=== PATIENT | male | born 1965 | race Caucasian/White ===

== ENCOUNTER 2016-10-16 19:20 | Emergency (ER) | payer OTHER ==
[2016-10-16] MEDS ORDERED: Ketorolac INJ* 60 MG/2 ML VIAL IM ONE (20:31)
[2016-10-16] MEDS ORDERED: HYDROcodone/ACETAMIN 5-325 MG* 1 TAB PO ONE (20:58)
[2016-10-16 21:11] VITALS: BP 145/95
--- NOTE | 2016-10-16 21:13 | UC ---
I, Raul,Floresita, scribed for Kandice Perez MD on 10/16/16 at 2054 . Complaint Male HPI - HPI Summary HPI Summary: This 51 y/o male presents to [facility] for acute left flank pain since 1830 PM this evening. Pt reports 6/10 pain at time of triage, but pain worsens while in Urgent Care room and was given Toradol. Negative hematuria or dysuria. PMHx does include recurrent kidney stones with last bout of nonobstructive kidney stone in December 2015. Pt reports that this is "my fourth time in last 20 years". FHx is positive for kidney stones to mother and leukemia to father at age of 71. 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 Primary care involves Dr. Saucedo. Plan of care involving further CT imaging is discussed with pt, but pt is refusing any further imaging stating that "it usually passed in a couple of hours before'. R/b/a is discussed. Outpatient f/u is discussed to r/o obstructive stones, and pt is agreeable to this plan. I-stop reviewed. - History of Current Complaint Chief Complaint: UCBackPain Stated Complaint: KIDNEY-AREA PAIN Time Seen by Provider: 10/16/16 19:32 Hx Obtained From: Patient, Medical Records Onset/Duration: Lasting Hours, Still Present Timing: Constant Pain Intensity: 6 Pain Scale Used: 0-10 Numeric Location: Flank - left Character: Sharp Aggravating Factor(s): Nothing Alleviating Factor(s): Nothing Associated Signs And Symptoms: Negative: Hematuria - Allergies/Home Medications Allergies/Adverse Reactions: Allergies Allergy/AdvReac Type Severity Reaction Status Date / Time No Known Allergies Allergy Verified 10/16/16 19:27 PMH/Surg Hx/FS Hx/Imm Hx - Surgical History Surgical History: Yes Surgery Procedure, Year, and Place: vasectomy - Family History Known Family History: Positive: Renal Disease - Positive kidney stones to mother , Other - Positive leukemia to father - Social History Alcohol Use: Rare Substance Use Type: None Smoking Status (MU): Never Smoked Tobacco Review of Systems Constitutional: Negative Skin: Negative Eyes: Negative ENT: Negative Respiratory: Negative Cardiovascular: Negative Gastrointestinal: Other - left flank pain, without nausea, vomiting, or change in bowels. Genitourinary: Other - no gross or microhematuria, no decrease in voiding, Motor: Negative Neurovascular: Negative Musculoskeletal: Negative Neurological: Negative Psychological: Negative All Other Systems Reviewed And Are Negative: Yes Physical Exam Triage Information Reviewed: Yes Appearance: Pain Distress - moderate to severe, improved significantly with toradol, Obese Vital Signs: Initial Vital Signs Temp 98 F 10/16/16 19:24 Pulse 64 10/16/16 19:24 Resp 16 10/16/16 19:24 BP 156/90 10/16/16 19:24 Pulse Ox 99 10/16/16 19:24 Vital Signs Reviewed: Yes ENT: Positive: Normal ENT inspection Respiratory: Positive: Lungs clear, Normal breath sounds Cardiovascular: Positive: RRR, No Murmur Abdomen Description: Positive: Nontender, No Organomegaly, Soft, CVA Tenderness (L) - mild. Negative: CVA Tenderness (R) Bowel Sounds: Positive: Present Musculoskeletal Exam: Normal Neurological Exam: Normal Psychological Exam: Normal Skin Exam: Normal Diagnostics - Laboratory Diagnostic Studies Completed/Ordered: UA is normal, no blood Complaint Male Course/Dx - Course Course Of Treatment: ketoralac relieved pain quickly. given likely recurrent renal stone, will discharge with analgesics. Follow up tomorrow with either urology or Dr. Saucedo for imaging. [facility] site checked--search # [id number] - Differential Dx/Diagnosis Provider Diagnoses: renal lithiasis Discharge - Discharge Plan Condition: Stable Disposition: HOME Prescriptions: HYDROcodone/ACETAMIN 5-325 MG* [[place] 5-325 TAB*] 2 tab PO Q6H PRN #10 tab MDD 8 PRN Reason: Pain Tamsulosin CAP* [Flomax CAP*] 0.4 mg PO DAILY #30 cap Referrals: Jeff Saucedo MD [Primary Care Provider] - Wan Harrington MD [Medical Doctor] - Additional Instructions: The toradol will give pain control for another 6 hours. You have hydrocodone to use overnight, and an additional prescription was sent to the pharmacy. You have flomax to use daily to promote stone passage. Please strain your urine. Follow up tomorrow with Dr. Saucedo or with urology to arrange imaging of your kidney to ensure that you are not having a blockage to the flow or urine from the kidney. The documentation as recorded by the Raul hussein Soohyun accurately reflects the service I personally performed and the decisions made by me, Kandice Perez MD.
== END 2016-10-16 21:29 | disposition home or self-care (01) ==
LOC: UCEAST 19:20
DX: N20.0 Calculus of kidney (principal); Z87.442 Personal history of urinary calculi; E66.9 Obesity, unspecified
CPT/HCPCS: 81003; 96372; 99212; G0463; J1885

== ENCOUNTER 2018-11-19 09:59 | Emergency (ER) | payer OTHER ==
[2018-11-19 10:10] VITALS: BP 143/91
--- NOTE | 2018-11-19 10:17 | UC ---
Respiratory Complaint HPI - HPI Summary HPI Summary: 53-year-old male with a history of asthma who has had cold symptoms with head congestion and now lung congestion over the past week. He states he does have an albuterol inhaler which she has been using occasionally but not regularly. He denies any fever. - History of Current Complaint Chief Complaint: UCRespiratory Stated Complaint: HEAD/CHEST CONGESTION Time Seen by Provider: 11/19/18 10:16 Hx Obtained From: Patient Onset/Duration: Gradual Onset Timing: Constant Severity Initially: Mild Severity Currently: Moderate Pain Intensity: 0 Character: Cough: Productive - Productive cough of yellow sputum. Aggravating Factors: Nothing Alleviating Factors: Nothing - Patient has used his albuterol inhaler but only occasionally and not regularly over the past few days. Associated Signs And Symptoms: Positive: URI, Nasal Congestion, Sinus Discomfort - Allergies/Home Medications Allergies/Adverse Reactions: Allergies Allergy/AdvReac Type Severity Reaction Status Date / Time No Known Allergies Allergy Verified 11/19/18 10:07 Home Medications: Home Medications Dextromethorphan HBr [Tussin Cough] 1 tab PO ONCE PRN 11/19/18 [History Confirmed 11/19/18] PMH/Surg Hx/FS Hx/Imm Hx Previously Healthy: Yes Respiratory History: Asthma - Surgical History Surgical History: Yes Surgery Procedure, Year, and Place: vasectomy - Family History Known Family History: Positive: Renal Disease - Positive kidney stones to mother , Other - Positive leukemia to father - Social History Alcohol Use: Rare Substance Use Type: None Smoking Status (MU): Never Smoked Tobacco Review of Systems All Other Systems Reviewed And Are Negative: Yes ENT: Positive: Sinus Congestion, Other - Postnasal drainage. Respiratory: Positive: Cough - Productive cough of yellow sputum. Is Patient Immunocompromised?: No Physical Exam Triage Information Reviewed: Yes Appearance: Well-Appearing, No Pain Distress, Well-Nourished Vital Signs: Initial Vital Signs Temp 98.5 F 11/19/18 10:06 Pulse 65 11/19/18 10:06 Resp 18 11/19/18 10:06 BP 143/91 11/19/18 10:06 Pulse Ox 97 11/19/18 10:06 Vital Signs Reviewed: Yes Eyes: Positive: Conjunctiva Clear ENT: Positive: Pharynx normal, Nasal congestion, TMs normal, Uvula midline, Other - Yellow purulent nasal coryza.. Negative: Tonsillar swelling, Tonsillar exudate, Trismus, Muffled voice, Hoarse voice Neck: Positive: Supple, Nontender, No Lymphadenopathy Respiratory: Positive: No respiratory distress, No accessory muscle use, Rhonchi - Wheezing and rhonchi throughout all lung hernandes however no respiratory distress., Wheezing Cardiovascular: Positive: RRR, No Murmur, Pulses Normal, Brisk Capillary Refill Musculoskeletal Exam: Normal Neurological Exam: Normal Psychological Exam: Normal Skin Exam: Normal Respiratory Course/Dx - Course Course Of Treatment: Chest x-ray: FINDINGS: CARDIOMEDIASTINAL SILHOUETTE: The cardiomediastinal silhouette is normal. IVAN: The ivan are normal. PLEURA: The costophrenic angles are sharp. No pleural abnormalities are noted. LUNG PARENCHYMA: There is hyperinflation with flattening of the diaphragm and expansion of the AP diameter of the chest. ABDOMEN: The upper abdomen is clear. There is no subphrenic gas. BONES AND SOFT TISSUES: No bone or soft tissue abnormalities are noted. OTHER: None. IMPRESSION: HYPERINFLATION, CONSISTENT WITH COPD. NO ACTIVE CARDIOPULMONARY DISEASE. DuoNeb: Patient felt improved following the DuoNeb treatment. He felt like he was taking a better breath and deeper inspiration. He continues to have scattered wheezing however that has improved. - Differential Dx/Diagnosis Provider Diagnosis: Bronchitis, Sinusitis Discharge - Sign-Out/Discharge Documenting (check all that apply): Patient Departure All imaging exams completed and their final reports reviewed: Yes - Discharge Plan Condition: Fair Disposition: HOME Prescriptions: DOXYcycline CAP(*) [DOXYcycline 100MG CAP(*)] 100 mg PO BID 10 Days #20 cap predniSONE [Prednisone 20 MG TAB] 20 mg PO DAILY 9 Days #18 tablet Patient Education Materials: Acute Bronchitis (ED), Sinusitis (ED) Referrals: Jeff Saucedo MD [Primary Care Provider] - Additional Instructions: Take the prednisone and doxycycline with food. No dairy products, antacids or multivitamins 2 hours before you take the doxycycline and 2 hours after you take the doxycycline. Definite follow-up with her primary care provider as needed if no improvement in 3 or 4 days. You may use her nebulizer or albuterol inhaler every 4 hours as needed for wheezing. - Billing Disposition and Condition Condition: FAIR Disposition: Home
[2018-11-19] MEDS ORDERED: Albuterol/Ipratropium NEB.SOL* Albuterol 2.5 MG/Ipratropium 0.5 MG 3 ML INH ONE (10:21)
== END 2018-11-19 11:10 | disposition home or self-care (01) ==
LOC: UCEAST 09:59
DX: J40 Bronchitis, not specified as acute or chronic (principal); J32.9 Chronic sinusitis, unspecified
CPT/HCPCS: 71046; 99212; A9270-GY; G0463